=== PATIENT | female | born 1970 | race Caucasian/White ===

== ENCOUNTER 2016-12-31 20:11 | Emergency (ER) | payer SELFPAY ==
[~2016-12-31] VITALS: Ht 162.6 cm; Wt 60.5 kg
[~2016-12-31 20:11] MED LIST: LITH150C7 PO; LITH450 PO; OXYC-360 PO; SERT50 PO
[2016-12-31 20:13] VITALS: BP 117/88; PULSE 106; RESP 18; TEMP 98.4; O2SAT 99
[2016-12-31] MEDS ORDERED: BUPR100CR PO (20:29)
[2016-12-31 20:46] LABS: BLOOD, URINE LARGE (NEG); GLUCOSE,URINE NEG (NEG); KETONE, URINE NEG (NEG); NITRITE,URINE NEG (NEG); PH, URINE 6.5 (5.0-8.5)
[2016-12-31 21:11] LABS: MUCUS URINE FEW /lpf (OCC); URINE COLOR YELLOW (YELLW/STRAW)
[2016-12-31 21:13] LABS: BACTERIA, URINE FEW /hpf; COMMENT (UR) CULTURE INDICATED; CULTURE IF INDICATED CULTURE INDICATED; SQUAMOUS EPITHELIAL CELL URINE 0-5 /hpf (0-5)
--- NOTE | 2016-12-31 21:18 | PD ---
HPI Chief Complaint: Complaint Time Seen by Provider: 20:22 Travel History International Travel<30 days: No Contact w/Intl Traveler<30days: No Traveled to known affect area: No History of Present Illness HPI 46-year-old female presents to the emergency department for 3 days of dysuria frequency urgency and decreased urination. Patient has history of urinary tract infections in the past. Patient denies fever or chills. Patient's had no nausea or vomiting. Patient denies flank pain. Patient's had no hematuria. Patient denies abnormal vaginal bleeding or discharge. Patient denies abdominal pain. Patient does not smoke. Pressure associated with urination. Patient is unable to identify alleviating factors did take Midol without relief but attempted urination does seem to worsen symptoms. Patient I was able to get to the emergency room if she has been at work and unable to seek out medical attention until this time. Patient denies . Patient's last menses was April 2016. Patient rates pain with urination 5/10. PFSH Past Medical History Narrative Medical Bipolar, anxiety, UTI; cholecystectomy; tobacco use alcohol use marijuana use; nursing notes reviewed Blood Disorders: No Bipolar Disorder: Yes Anxiety: Yes Heart Rhythm Problems: No Cancer: No Cardiovascular Problems: No High Cholesterol: No Chest Pain: No Congestive Heart Failure: No Diminished Hearing: No Endocrine: No Genitourinary: No Hypertension: No Immune Disorder: No Musculoskeletal: No Neurologic: No Psychiatric: No Reproductive: No Respiratory: No Tetanus Vaccination: > 5 Years Influenza Vaccination: No ?: Unknown LMP: "2016" Menopausal: No : 6 Para: 3 Miscarriage: 1 : 1 Past Surgical History Cholecystectomy: Yes Other Surgery: No Social History Alcohol Use: Yes (OCC) Tobacco Use: Yes (10 Cigs daily) Substance Use: Yes (MARIJUANA) Allergies-Medications (Allergen,Severity, Reaction): Coded Allergies: No Known Allergies (Verified , 12/31/16) Reported Meds & Prescriptions Reported Meds & Active Scripts Active Pyridium (Phenazopyridine HCl) 100 Mg Tab 100 Mg PO Q8H PRN Bactrim DS (Sulfamethoxazole-Trimethoprim) 800-160 Mg Tab 1 Tab PO BID Zofran Odt (Ondansetron Odt) 4 Mg Tab 4 Mg SL Q6HR PRN Reported Wellbutrin SR 12 HR (Bupropion HCl) 100 Mg Tab 50 Mg PO DAILY Review of Systems Except as stated in HPI: all other systems reviewed are Neg Physical Exam Narrative GENERAL: Well-developed well-nourished female in no acute distress no respiratory distress SKIN: Warm and dry. HEAD: Normocephalic. EYES: No scleral icterus. No injection or drainage. NECK: Supple, trachea midline. No JVD or lymphadenopathy. CARDIOVASCULAR: Regular rate and rhythm without murmurs, gallops, or rubs. RESPIRATORY: Breath sounds equal bilaterally. No accessory muscle use. GASTROINTESTINAL: Abdomen soft, non-tender, nondistended. MUSCULOSKELETAL: No cyanosis, or edema. BACK: Nontender without obvious deformity. No CVA tenderness. Data Data Last Documented VS Vital Signs Date Time Temp Pulse Resp B/P Pulse Ox O2 Delivery O2 Flow Rate FiO2 12/31/16 22:15 16 12/31/16 22:12 75 97 12/31/16 21:30 117/69 Room Air 12/31/16 20:13 98.4 Orders Urinalysis - C+S If Indicated (12/31/16 20:23) Ed Urine Pregnancytest Poc (12/31/16 20:23) Urine Culture (12/31/16 20:30) Sulfamet-Trimeth Ds 800-160 Mg (Bactrim (12/31/16 21:30) Phenazopyridine (Pyridium) (12/31/16 21:30) Ibuprofen (Motrin) (12/31/16 21:30) Labs Laboratory Tests Test 12/31/16 20:30 Urine Color YELLOW Urine Turbidity MOD Urine pH 6.5 Urine Specific [place] 1.022 Urine Protein TRACE mg/dL Urine Glucose (UA) NEG mg/dL Urine Ketones NEG mg/dL Urine Occult Blood LARGE Urine Nitrite NEG Urine Bilirubin NEG Urine Leukocyte Esterase SMALL Urine RBC 10-14 /hpf Urine WBC 50-99 /hpf Urine WBC Clumps FEW Urine Squamous Epithelial 0-5 /hpf Cells Urine Amorphous Sediment FEW Urine Bacteria FEW /hpf Urine Mucus FEW /lpf Microscopic Urinalysis Comment CULTURE INDICATED MDM Medical Decision Making Medical Screen Exam Complete: Yes Emergency Medical Condition: Yes Medical Record Reviewed: Yes Interpretation(s) Fzkyy-kj-ynjh hCG: Negative Urinalysis: Positive clumped white blood cells positive bacteria positive leukocyte Estrace; culture indicated Differential Diagnosis Dysuria, UTI, pyelonephritis, PID, Narrative Course Specimen collected and sent for resulting oxrep-hi-szsu hCG ordered Nfmow-vy-anlr test is negative; urinalysis is abnormal; patient given Pyridium and Bactrim in the emergency department along with ibuprofen 600 mg Diagnosis Primary Impression: UTI (urinary tract infection) Referrals: Primary Care Physician call for appointment Patient Instructions: General Instructions Additional Instructions: Increase fluid hydration Take medications as prescribed Take acetaminophen/Tylenol every 4 hours as needed for fever 100.4F or greater or for minor pain Take ibuprofen/Advil/Motrin 600 milligrams as often as every 6-8 hours as needed for fever 100.4F or greater or for pain associated inflammation Use Pyridium as needed for pain with associated with urination Complete course of antibiotic as prescribed May use Zofran as prescribed as needed for nausea and/or vomiting Return to the emergency department for any concerns or change in condition Med/Other Pt SpecificInfo: Prescription(s) given Scripts Phenazopyridine (Pyridium)100 Mg [id number] Mg PO Q8H PRN (DYSURIA) #6 TAB Ref 0 Prov:Dee Evans MD 12/31/16 Sulfamethoxazole-Trimethoprim (Bactrim DS)800-160 Mg Tab1 Tab PO BID #20 TAB Ref 0 Prov:Dee Evans MD 12/31/16 Ondansetron Odt (Zofran Odt)4 Mg Tab4 Mg SL Q6HR PRN (Nausea/Vomiting) #10 TAB Ref 0 Prov:Dee Evans MD 12/31/16 Disposition: 01 DISCHARGE HOME Condition: Stable Dee Evans MD Dec 31, 2016 21:17
[2016-12-31] MEDS ORDERED: ZOFR4TAB3 SL ×2 (21:20→22:06)
[2016-12-31] MEDS ORDERED: PHEN0.4T PO ×2 (21:20→22:07)
[2016-12-31] MEDS ORDERED: BACT800T5 PO ×2 (21:20→22:06)
[2016-12-31 21:30] VITALS: BP 117/69; PULSE 79; RESP 16; O2SAT 98
[2016-12-31] MEDS ORDERED: PHENAZOPYRIDINE HCL 100 MG TAB PO ONE (21:30)
[2016-12-31] MEDS ORDERED: IBUPROFEN 600 MG TAB PO ONE (21:30)
[2016-12-31] MEDS ORDERED: SULFAMETHOXAZOLE-TRIMETHOPRIM DS 800-160 MG TAB PO ONE (21:30)
[2016-12-31 22:15] VITALS: RESP 16
== END 2016-12-31 22:13 | disposition home or self-care (01) ==
LOC: PHED 20:11
DX: N39.0 Urinary tract infection, site not specified (principal); F17.210 Nicotine dependence, cigarettes, uncomplicated; B95.7 Other staphylococcus as the cause of diseases classified elsewhere
CPT/HCPCS: 81001; 84703; 86403; 87077; 87086; 87186; 99284

== ENCOUNTER 2017-06-26 18:05 | Emergency (ER) | payer MEDICAID, OTHER ==
[~2017-06-26] VITALS: Ht 162.6 cm; Wt 60.0 kg
[~2017-06-26 18:05] MED LIST changes: +BACT800T5 PO; +BUPR100CR PO; -LITH150C7 PO; -LITH450 PO; -OXYC-360 PO; +PHEN0.4T PO; -SERT50 PO; +ZOFR4TAB3 SL
[2017-06-26 18:08] VITALS: BP 139/92; PULSE 97; RESP 14; TEMP 97.6; O2SAT 98
[2017-06-26] MEDS ORDERED: LITH300C2 PO (18:24)
[2017-06-26] MEDS ORDERED: oxyCODONE/ACETAMINOPHEN 5 MG/325 MG TAB PO ONE (19:00)
[2017-06-26] MEDS ORDERED: TETANUS/DIPHTHERIA TOXOID ADULT 0.5 ML VIAL IM ONE (19:00)
[2017-06-26] MEDS ORDERED: SILVER SULFADIAZINE 1% CR 400 GM JAR TOPICAL ONE (19:00)
[2017-06-26] MEDS ORDERED: IBUP-232 PO (19:21)
[2017-06-26] MEDS ORDERED: SILV1CRE20 TOPICAL (19:21)
[2017-06-26] MEDS ORDERED: PERC5TAB12 PO (19:21)
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
== END 2017-06-26 19:43 | disposition home or self-care (01) ==
LOC: NEPD 18:05
DX: T21.21XA Burn of second degree of chest wall, initial encounter (principal); T24.112A Burn of first degree of left thigh, initial encounter; X10.2XXA Contact with fats and cooking oils, initial encounter; Z23 Encounter for immunization
CPT/HCPCS: 16000; 16020; 90471; 90714